=== PATIENT | female | born 1990 ===

== ENCOUNTER 2018-02-10 12:10 | Emergency (ER) | payer OTHER ==
[2018-02-10 12:36] VITALS: O2SAT 99
--- NOTE | 2018-02-10 13:39 | ED PDOC ---
HPI: Back Time Seen by Provider: 02/10/18 13:13 Chief Complaint (Nursing): Back Pain Chief Complaint (Provider): chest pain/palpitations History Per: Patient (27 y/o female h/o downs syndrome nonverbal here with mother who states patient has had multiple complaints including chest pain last week. States patient had described palpitations to her. Patient has had cardiac surgery 2000 unclear what was repaired. Patient otherwise has no fever/ chills/eating normally.) Past Medical History Reviewed: Historical Data, Nursing Documentation, Vital Signs Vital Signs: Last Vital Signs Temp 98.0 F 02/10/18 12:32 Pulse 71 02/10/18 12:32 Resp 16 02/10/18 12:32 BP 105/61 02/10/18 12:32 Pulse Ox 99 02/10/18 12:32 - Medical History Other PMH: DOWNS SYNDROME/CARDIAC SX 2000 - Surgical History Surgical History: CABG - Family History Family History: States: No Known Family Hx - Home Medications Home Medications: Ambulatory Orders Medication Instructions Recorded Nitrofurantoin Macrocrystals 100 mg PO BID #14 cap 02/10/18 [Macrobid] - Allergies Allergies/Adverse Reactions: Allergies Allergy/AdvReac Type Severity Reaction Status Date / Time No Known Allergies Allergy Verified 02/10/18 12:32 Review of Systems ROS Statement: Except As Marked, All Systems Reviewed And Found Negative Cardiovascular: Positive for: Palpitations Physical Exam - Reviewed Nursing Documentation Reviewed: Yes Vital Signs Reviewed: Yes - Physical Exam Appears: Positive for: Well, Non-toxic, No Acute Distress Head Exam: Positive for: ATRAUMATIC, NORMAL INSPECTION, NORMOCEPHALIC Skin: Positive for: Normal Color, Warm, DRY Eye Exam: Positive for: EOMI, Normal appearance, PERRL ENT: Positive for: Normal ENT Inspection Neck: Positive for: Normal, Painless ROM Cardiovascular/Chest: Positive for: Regular Rate, Rhythm Respiratory: Positive for: CNT, Normal Breath Sounds Gastrointestinal/Abdominal: Positive for: Normal Exam, Soft Back: Positive for: Normal Inspection Extremity: Positive for: Normal ROM Neurologic/Psych: Positive for: Alert, Oriented - Laboratory Results Result Diagrams: 02/10/18 15:09 02/10/18 15:09 Urine POC: Negative - ECG ECG Rhythm: Positive for: Sinus Rhythm O2 Sat by Pulse Oximetry: 99 - Progress ED Course And Treament: PATIENT OBSERVED ON WAGON WINDER NORMAL SINUS RHYTHM. COMFORTABLE IN ED UTI NOTED ON URINALYSIS Disposition - Clinical Impression Clinical Impression: UTI (urinary tract infection) - Patient ED Disposition Is Patient to be Admitted: No - Disposition Referrals: [facility] [Outside] Disposition: Routine/Home Disposition Time: 16:51 Condition: FAIR Prescriptions: Nitrofurantoin Macrocrystals [Macrobid] 100 mg PO BID #14 cap Instructions: Palpitations, Urinary Tract Infection, Adult (DC) Print Language: UPPER SORBIAN
[2018-02-10 14:18] LABS: SQUAMOUS EPITHIAL 5 /hpf (0-5); URINE BACTERIA RARE (<OCC); URINE BILIRUBIN NEGATIVE (NEGATIVE); URINE BLOOD NEGATIVE (NEGATIVE); URINE CLARITY CLOUDY (Clear); URINE COLOR YELLOW (YELLOW); URINE GLUCOSE (UA) NEG (Normal); URINE LEUKOCYTE ESTERASE MOD Leu/uL (Negative); URINE PROTEIN NEGATIVE (NEGATIVE)
--- NOTE | 2018-02-10 14:40 | RAD ---
PROCEDURE: CHEST RADIOGRAPH, 1 VIEW HISTORY: cp COMPARISON: None available. FINDINGS: LUNGS: Clear. PLEURA: No pneumothorax or pleural fluid seen. CARDIOVASCULAR: Prior sternotomy with sternal wires and surgical clips in place. OSSEOUS STRUCTURES: No significant abnormalities. VISUALIZED UPPER ABDOMEN: Normal. OTHER FINDINGS: None. IMPRESSION: No active disease.
[2018-02-10 15:16] LABS: BASO % 0.6 % (0.0-2.0); EOS # 0.2 K/uL (0.0-0.7); EOS % 3.9 % (0.0-4.0); LYMPH # 2.3 K/uL (1.0-4.3); LYMPH % 36.2 % (20.0-40.0); MEAN CELL VOLUME 97.9 fl (81.0-99.0); MEAN CORPUSCULAR HGB CONC 34.8 g/dL (33.0-37.0); MEAN PLATELET VOLUME 8.2 fl (7.2-11.7); MONO # 0.5 K/uL (0.0-0.8); MONO % 8.1 % (0.0-10.0); NEUT # 3.2 K/uL (1.8-7.0); NEUT % 51.2 % (50.0-75.0); RBC 4.41 Mil/uL (3.80-5.20); WHITE BLOOD COUNT 6.2 K/uL (4.8-10.8)
[2018-02-10 15:31] LABS: BLOOD UREA NITROGEN 11 mg/dl (7-17); CALCIUM 9.6 mg/dL (8.4-10.2); GFR AFRICAN-AMERICAN > 60; GFR NON-AFRICAN AMERICAN > 60
[2018-02-10 17:14] VITALS: BP 105/74; PULSE 66; RESP 18; TEMP 98.1
== END 2018-02-10 17:13 | disposition home or self-care (01) ==
LOC: H.ER 12:10
DX: N39.0 Urinary tract infection, site not specified (principal); Q90.9 Down syndrome, unspecified; Z95.1 Presence of aortocoronary bypass graft

== ENCOUNTER 2018-07-30 16:46 | Emergency (ER) | payer OTHER ==
[2018-07-30 16:54] VITALS: BP 116/72; PULSE 67; RESP 16; TEMP 98.6; O2SAT 98
--- NOTE | 2018-07-30 18:08 | ED PDOC ---
HPI: General Adult Time Seen by Provider: 07/30/18 17:13 Chief Complaint (Nursing): Abdominal Pain History Per: Patient History/Exam Limitations: no limitations Onset/Duration Of Symptoms: Days (x3) Additional Complaint(s): 27 y/o female with history of down syndrome presents to the ED complaining of suprapubic tenderness with associated right lower back pain and urinary frequency. Patient denies fever, chills, flank pain, nausea, vomiting. Patient has been eating and drinking normally and has no other medical complaints. Past Medical History Reviewed: Historical Data, Nursing Documentation, Vital Signs Vital Signs: Last Vital Signs Temp 98.6 F 07/30/18 16:53 Pulse 67 07/30/18 16:53 Resp 16 07/30/18 16:53 BP 116/72 07/30/18 16:53 Pulse Ox 98 07/30/18 16:53 - Medical History Other PMH: Down syndrome - Surgical History Surgical History: CABG - Family History Family History: States: Unknown Family Hx - Social History Current smoker - smoking cessation education provided: No Alcohol: None Drugs: Denies - Home Medications Home Medications: Ambulatory Orders Medication Instructions Recorded Nitrofurantoin Macrocrystals 100 mg PO BID #14 cap 02/10/18 [Macrobid] Nitrofurantoin Macrocrystals 100 mg PO BID #10 cap 07/30/18 [Macrobid] - Allergies Allergies/Adverse Reactions: Allergies Allergy/AdvReac Type Severity Reaction Status Date / Time ampicillin Allergy RASH Verified 07/30/18 17:04 Review of Systems ROS Statement: Except As Marked, All Systems Reviewed And Found Negative Constitutional: Negative for: Fever, Chills Gastrointestinal: Positive for: Abdominal Pain. Negative for: Nausea, Vomiting Genitourinary Female: Positive for: Frequency Musculoskeletal: Negative for: Other (flank pain) Physical Exam - Reviewed Nursing Documentation Reviewed: Yes Vital Signs Reviewed: Yes - Physical Exam Appears: Positive for: Non-toxic, No Acute Distress Head Exam: Positive for: ATRAUMATIC, NORMOCEPHALIC Skin: Positive for: Normal Color, Warm, DRY Eye Exam: Positive for: EOMI, Normal appearance, PERRL Neck: Positive for: Normal, Painless ROM Cardiovascular/Chest: Positive for: Regular Rate, Rhythm. Negative for: Murmur, Bradycardia, Tachycardia Respiratory: Positive for: Normal Breath Sounds. Negative for: Respiratory Distress Gastrointestinal/Abdominal: Positive for: Normal Exam, Soft. Negative for: Tenderness Back: Negative for: L CVA Tenderness, R CVA Tenderness Extremity: Positive for: Normal ROM. Negative for: Pedal Edema, Deformity Neurologic/Psych: Positive for: Alert, Oriented. Negative for: Motor/Sensory Deficits - ECG O2 Sat by Pulse Oximetry: 98 (RA) Pulse Ox Interpretation: Normal Medical Decision Making Medical Decision Making: Time: 17:22 Initial Impression: abdominal pain Initial Plan: * ED Urine preg * ED Urine dip * Urine Culture Scribe Attestation: Documented by Jordan Mays, acting as a scribe for Radha Carlton PA-C. Provider Scribe Attestation: All medical record entries made by the Scribe were at my direction and personally dictated by me. I have reviewed the chart and agree that the record accurately reflects my personal performance of the history, physical exam, medical decision making, and the department course for this patient. I have also personally directed, reviewed, and agree with the discharge instructions and disposition. Disposition - Clinical Impression Clinical Impression: UTI (urinary tract infection) - Patient ED Disposition Is Patient to be Admitted: No Counseled Patient/Family Regarding: Diagnosis, Need For Followup, Rx Given - Disposition Disposition: Routine/Home Disposition Time: 18:08 Condition: GOOD Prescriptions: Nitrofurantoin Macrocrystals [Macrobid] 100 mg PO BID #10 cap Instructions: Urinary Tract Infections in Adults Forms: [facility] (Anguillan) Print Language: SAMI
== END 2018-07-30 18:19 | disposition home or self-care (01) ==
LOC: H.ER 16:46
DX: N39.0 Urinary tract infection, site not specified (principal); Q90.9 Down syndrome, unspecified; Z95.1 Presence of aortocoronary bypass graft